=== PATIENT | female | born 1975 | race African-American/Black ===

== ENCOUNTER → 2016-08-07 | Outpatient (CLI) | payer OTHER ==
[~2016-08-07] MED LIST: LEVOXYL150 MC1 PO
--- NOTE | ~2016-08-07 | MY11 ---
[facility] A Service of [facility] RADIOLOGY TEXT RESULTS PATIENT: SAGRARIO ORTIZ LOCATION: [facility] : 79 UNIT #: [id number] AGE: [address]: Landon Magana MD SEX: F ORDER DR: [id number] [facility]. [place], [place] [address] [id number] O MR#: [id number] #: [id number] NAME: SAGRARIO ORTIZ : 1975 SEX: F STUDY DATE/TIME: 08/07/2016 13:17 UNIT: [facility] ROOM: STUDY DESCRIPTION: MY Mammogram Screening Dig Javier Attending Physician: Landon Magana M.D. Ordering Physician: Landon Magana M.D. Primary Care Physician: Landon Magana M.D. MEDICAL IMAGING REPORT This report is preliminary unless electronic signature is present EXAM Digital screening mammogram, 08/07/2016 HISTORY 40-year-old woman no risk elevation. Annual screening. COMPARISON 02/01/2013, 02/02/2015 FINDINGS Digital imaging of each breast was completed utilizing a two-view examination of each breast in craniocaudal and mediolateral-oblique projections. Review and interpretation of digital mammograms include a second review in conjunction with FDA-approved CAD device. There is a normal parenchymal presentation bilaterally consistent with the patient's age. There are no breast masses imaged and no parenchymal asymmetry is visualized. There are no suspicious microcalcifications and I see no focal architectural disturbance. IMPRESSION Negative screening digital mammogram. One-year followup recommended. Patients over the age of 40 are entered into a reminder system with target due date for the next mammogram. A result letter will also be sent to the patient. BIRADS: 1 Negative Dictated by... Julien Renteria M.D. THIS IS AN ELECTRONICALLY VERIFIED REPORT Julien Renteria M.D. at 08/07/2016 3:02 PM [facility] A Service [facility] RADIOLOGY TEXT RESULTS PATIENT: SAGRARIO ORTIZ LOCATION: [facility] : 79 UNIT #: [id number] AGE: [address]: Landon Magana MD SEX: F ORDER DR: ALFIE/jessica TD: 08/07/2016 14:35 JOB #: [id number] MEDICAL IMAGING REPORT Page 1 of 1 COPY
== END | disposition home or self-care (01) ==
LOC: CWCC 12:51
DX: Z12.31 Encounter for screening mammogram for malignant neoplasm of breast (principal)
CPT/HCPCS: G0202